=== PATIENT | female | born 1955 | race Caucasian/White ===

== ENCOUNTER 2017-06-03 18:18 | Emergency (ER) | payer MEDICAID ==
[~2017-06-03] VITALS: Ht 157.5 cm; Wt 70.3 kg
[~2017-06-03 18:18] MED LIST: "\\\"WATER PILL\\\""; ALBU8.5H5 INH; ESOM20CA PO; FURO20TA3 PO; METF500T4 PO; METH500T7 PO; SENN-18 PO
[2017-06-03] MEDS ORDERED: HYDROcodone/APAP 5/325 TABLET ONE (19:21)
[2017-06-03] MEDS ORDERED: HYDROcodone/APAP 5/325 TABLET PO ONE (19:30)
[2017-06-03 20:07] VITALS: BP 115/78
== END 2017-06-03 20:09 | disposition home or self-care (01) ==
LOC: ED 20:03
DX: S90.31XA Contusion of right foot, initial encounter (principal); M25.461 Effusion, right knee; E11.9 Type 2 diabetes mellitus without complications; J45.909 Unspecified asthma, uncomplicated; G43.909 Migraine, unspecified, not intractable, without status migrainosus; Z90.49 Acquired absence of other specified parts of digestive tract; W19.XXXA Unspecified fall, initial encounter; Y93.89 Activity, other specified; Y92.009 Unspecified place in unspecified non-institutional (private) residence as the place of occurrence of the external cause; Y99.8 Other external cause status
CPT/HCPCS: 29505

== ENCOUNTER 2017-08-16 17:18 | Emergency (ER) | payer MEDICAID ==
[~2017-08-16] VITALS: Ht 157.5 cm; Wt 72.0 kg
[~2017-08-16 17:18] MED LIST changes: +LOPE2CAP PO
[2017-08-16] MEDS ORDERED: METOCLOPRAMIDE 5 MG/ML, 2ML ONE (20:29)
[2017-08-16] MEDS ORDERED: KETOROLAC 30 MG/1 ML ONE (20:29)
[2017-08-16] MEDS ORDERED: DIPHENHYDRAMINE 50 MG/ML, 1ML ONE (20:29)
[2017-08-16] MEDS ORDERED: METOCLOPRAMIDE 5 MG/ML, 2ML IVPush ONE (20:30)
[2017-08-16] MEDS ORDERED: SODIUM CHLORIDE FLUSH 10ML SYR IVF ONE (20:30)
[2017-08-16] MEDS ORDERED: DIPHENHYDRAMINE 50 MG/ML, 1ML IVPush ONE (20:30)
[2017-08-16] MEDS ORDERED: SODIUM CHLORIDE 0.9% 1,000ML IVBOLUS ONE (20:30)
[2017-08-16] MEDS ORDERED: KETOROLAC 30 MG/1 ML IVPush ONE (20:30)
[2017-08-16 21:18] VITALS: BP 121/68
== END 2017-08-16 21:36 | disposition home or self-care (01) ==
LOC: ED 21:24
DX: G43.009 Migraine without aura, not intractable, without status migrainosus (principal); E11.9 Type 2 diabetes mellitus without complications; J45.909 Unspecified asthma, uncomplicated; K74.60 Unspecified cirrhosis of liver; Z90.49 Acquired absence of other specified parts of digestive tract
CPT/HCPCS: 96361; 96374; 96375; 99285; J1200; J1885; J2765; J7030

== ENCOUNTER 2017-08-23 11:21 | Emergency (ER) | payer MEDICAID ==
[~2017-08-23] VITALS: Ht 157.5 cm; Wt 69.9 kg
[2017-08-23] MEDS ORDERED: DEXAMETHASONE 4 MG/ML, 5ML ONE (13:47)
[2017-08-23] MEDS ORDERED: DIPHENHYDRAMINE 50 MG/ML, 1ML ONE (13:48)
[2017-08-23] MEDS ORDERED: METOCLOPRAMIDE 5 MG/ML, 2ML ONE (13:48)
[2017-08-23] MEDS ORDERED: METOCLOPRAMIDE 5 MG/ML, 2ML IVPush ONE (14:00)
[2017-08-23] MEDS ORDERED: SODIUM CHLORIDE FLUSH 10ML SYR IVF ONE (14:00)
[2017-08-23] MEDS ORDERED: DIPHENHYDRAMINE 50 MG/ML, 1ML IVPush ONE (14:00)
[2017-08-23] MEDS ORDERED: SODIUM CHLORIDE 0.9% 1,000ML IVBOLUS ONE (14:00)
[2017-08-23] MEDS ORDERED: DEXAMETHASONE 4 MG/ML, 5ML IV ONE (14:00)
[2017-08-23 14:23] VITALS: BP 130/83
== END 2017-08-23 16:07 | disposition home or self-care (01) ==
LOC: ED 13:46
DX: G43.C0 Periodic headache syndromes in child or adult, not intractable (principal); E11.9 Type 2 diabetes mellitus without complications; Z90.49 Acquired absence of other specified parts of digestive tract
CPT/HCPCS: 96361; 96374; 96375; 99284; J1200; J2765; J7030

== ENCOUNTER → 2017-09-05 | Outpatient (CLI) | payer MEDICAID | END | disposition home or self-care (01) | LOC: CFH 10:43 | PROVIDERS: ATTEND Specialist | DX: B19.20 Unspecified viral hepatitis C without hepatic coma (principal); K74.60 Unspecified cirrhosis of liver; R16.1 Splenomegaly, not elsewhere classified; N95.0 Postmenopausal bleeding; Z90.49 Acquired absence of other specified parts of digestive tract | CPT/HCPCS: 76830; 93975 ==

== ENCOUNTER 2020-07-21 13:33 | Emergency (ER) | payer MEDICARE, MEDICAID ==
[~2020-07-21] VITALS: Ht 162.6 cm; Wt 81.8 kg
[~2020-07-21 13:33] MED LIST changes: +METF500T17 PO; -METF500T4 PO
--- NOTE | 2020-07-21 13:37 | NUR ---
BIB EMS W/ C/O FEELING DIZZY, LIGHTHEADED, BACK PAIN TO R LUNG AREA. MILKD SOB. SX STARTED 1 WK AGO. SX SIMILAR A FEW YRS AGO HAD PLEURAL EFFUSION W/ THORACENTESIS. ALSO HAS C/O LIRA, LOSS OF APPETITE, DIARRHEA. 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 PT PLACED ON MONITORS. RESTING ON GURNEY. MILLI. WILL KITCHEN AT BEDSIDE FOR EVAL.
[2020-07-21] MEDS ORDERED: METHOCARBAMOL 750 MG TABLET ONE (14:21)
[2020-07-21] MEDS ORDERED: ACETAMINOPHEN 325 MG TABLET ONE (14:21)
--- NOTE | 2020-07-21 14:25 | NUR ---
BREAK RN: PT MEDICATED TO NOV. SITTING IN BED, CONNECTED TO CARDIAC, BP AND O2 MONITORS. NO ACUTE DISTRESS NOTED. PT AMBULATORY TO BATHROOM WITH ASSISTANCE AND STEADY GAIT.
[2020-07-21] MEDS ORDERED: ACETAMINOPHEN 325 MG TABLET PO ONE (14:30)
[2020-07-21] MEDS ORDERED: METHOCARBAMOL 750 MG TABLET PO ONE (14:30)
[2020-07-21 14:38] LABS: MEAN PLATELET VOLUME 8.7 fL (7.4-10.4); RED BLOOD COUNT 4.39 x10^6/uL (3.82-5.3); RED CELL DISTRIBUTION WIDTH 20.4 % (9.6-15.2)
[2020-07-21 14:47] LABS: ALANINE AMINOTRANSFERASE 18 U/L (12-78); ALBUMIN 4.4 g/dL (3.4-5.0); ANION GAP 9 mmol/L (5-15); CALCIUM 9.2 mg/dL (8.5-10.1); CHLORIDE 112 mmol/L (98-107); CREATININE 0.74 mg/dL (0.55-1.02)
[2020-07-21 14:51] LABS: ALKALINE PHOSPHATASE 58 U/L (45-117); BILIRUBIN,TOTAL 0.7 mg/dL (0.2-1.0); TOTAL PROTEIN 7.2 g/dL (6.4-8.2); TROPONIN I < 0.015 ng/mL (0.000-0.045)
[2020-07-21 15:22] LABS: MEAN CORPUSCULAR HGB CONC 29.7 g/dL (32.4-35.8); PLATELET COUNT 54 x10^3/uL (130-400)
--- NOTE | 2020-07-21 15:27 | NUR ---
PT RESTING ON GURNEY. NADN. MENDOZA.
[2020-07-21 15:28] LABS: MD YES
[2020-07-21 15:31] LABS: BAND#(MANUAL) 0.03 x10^3/uL; BANDS%(MANUAL) 1 % (0-7); LYMPH#(MANUAL) 0.44 x10^3/uL (1-3.4); LYMPHS% (MANUAL) 13 % (22-44); MONOS#(MANUAL) 0.14 x10^3/uL (0.3-2.7); MONOS% (MANUAL) 4 % (2-9); SEG#(MANUAL) 2.79 x10^3/uL (1.8-6.8); SEGS% (MANUAL) 82 % (42-75)
[2020-07-21 15:32] LABS: ANISOCYTOSIS 1+; MICROCYTOSIS 2+
[2020-07-21 15:33] LABS: <PLATELET ESTIMATE> DECREASED; <PLT MORPHOLOGY> NORMAL PLT MORPH; HYPOCHROMIA 2+; OVALOCYTES 2+; TEAR DROPS 1+
--- NOTE | 2020-07-21 16:15 | NUR ---
PT RESTING ON GURNEY. NADN. MENDOZA.
--- NOTE | 2020-07-21 17:18 | NUR ---
PT RESTING ON GURNEY. NADN. MENDOZA.
--- NOTE | 2020-07-21 18:16 | NUR ---
PT RESTING ON GURNEY. NADN. MENDOZA.
[2020-07-21 18:20] VITALS: BP 116/54
== END 2020-07-21 18:23 | disposition home or self-care (01) ==
LOC: ED 13:57
DX: M54.6 Pain in thoracic spine (principal); R07.9 Chest pain, unspecified; R94.31 Abnormal electrocardiogram [ECG] [EKG]; E11.9 Type 2 diabetes mellitus without complications; G43.909 Migraine, unspecified, not intractable, without status migrainosus; G89.29 Other chronic pain; J45.909 Unspecified asthma, uncomplicated
CPT/HCPCS: 36415; 71045; 80053; 83690; 84484; 85025; 85379; 93005; 99285

== ENCOUNTER 2020-09-13 09:07 | Emergency (ER) | payer MEDICARE, MEDICAID ==
[~2020-09-13] VITALS: Ht 157.5 cm; Wt 64.4 kg
--- NOTE | 2020-09-13 09:29 | NUR ---
ASSUMED CARE OF PATIENT. PROVIDER AT BEDSIDE PATIENT IS COMPLAINING OF A SORE ON HER LABIA X 3 DAYS. NO DRAINING BUT RED AND PAINFUL. PATIENT IS RESTING COMFORTABLY IN BED, WARM BLANKET PROVIDED. NO FAMILY AT BEDSIDE. CYCLING VITALS AND CALL LIGHT IN PLACE
[2020-09-13] MEDS ORDERED: INSULIN SINGLE DOSE, ER ONE ×2 (10:24→10:29)
[2020-09-13 10:31] LABS: ALANINE AMINOTRANSFERASE 24 U/L (12-78); ALBUMIN 3.7 g/dL (3.4-5.0); ANION GAP 5 mmol/L (5-15); CALCIUM 8.5 mg/dL (8.5-10.1); CHLORIDE 110 mmol/L (98-107)
[2020-09-13 10:33] LABS: ALKALINE PHOSPHATASE 64 U/L (45-117); BILIRUBIN,TOTAL 0.6 mg/dL (0.2-1.0); TOTAL PROTEIN 6.4 g/dL (6.4-8.2)
--- NOTE | 2020-09-13 10:38 | NUR ---
PATIENT RESTING COMFORTABLY IN BED. CALL LIGHT IN PLACE, CYCLING VITALS, NO FAMILY AT BEDSIDE.
[2020-09-13 10:40] LABS: MEAN CORPUSCULAR HEMOGLOBIN 21.5 pg (27.0-34.8); MEAN CORPUSCULAR HGB CONC 30.4 g/dL (32.4-35.8); MEAN PLATELET VOLUME 8.4 fL (7.4-10.4); RED BLOOD COUNT 3.49 x10^6/uL (3.82-5.3); RED CELL DISTRIBUTION WIDTH 20.6 % (9.6-15.2)
[2020-09-13] MEDS ORDERED: INSULIN REGULAR 100 UNITS/ML, 3ML VIAL SQ-INSULIN ONE (11:00)
[2020-09-13 11:07] LABS: MD YES; PLATELET COUNT 38 x10^3/uL (130-400)
[2020-09-13 11:12] LABS: ANISOCYTOSIS 1+; EOS#(MANUAL) 0.05 x10^3/uL (0.0-0.4); EOS% (MANUAL) 3 % (1-7); LYMPHS% (MANUAL) 13 % (22-44); MONOS#(MANUAL) 0.12 x10^3/uL (0.3-2.7); MONOS% (MANUAL) 8 % (2-9); SEG#(MANUAL) 1.14 x10^3/uL (1.8-6.8); SEGS% (MANUAL) 76 % (42-75)
[2020-09-13 11:13] LABS: HYPOCHROMIA 1+; MICROCYTOSIS 1+; OVALOCYTES 1+; TEAR DROPS 1+
[2020-09-13 11:15] LABS: <PLATELET ESTIMATE> DECREASED; <PLT MORPHOLOGY> NORMAL PLT MORPH
[2020-09-13 11:23] VITALS: BP 123/39
--- NOTE | 2020-09-13 11:23 | NUR ---
Patient/Caregiver given discharge instructions and they have confirmed that they understand the instructions. Patient ambulatory with steady gait.
[2020-09-13 11:25] LABS: ACETONE, SERUM Negative (Negative)
== END 2020-09-13 11:26 | disposition home or self-care (01) ==
LOC: ED 10:25
DX: B00.9 Herpesviral infection, unspecified (principal); E11.65 Type 2 diabetes mellitus with hyperglycemia; K73.9 Chronic hepatitis, unspecified; D72.819 Decreased white blood cell count, unspecified
CPT/HCPCS: 80053; 82010; 82800; 82962; 83036; 85025; 99283; J1815

== ENCOUNTER 2020-10-17 15:42 | Emergency (ER) | payer MEDICARE, MEDICAID ==
[~2020-10-17] VITALS: Ht 157.5 cm; Wt 70.0 kg
--- NOTE | 2020-10-17 16:00 | NUR ---
PT BIB EMS FOR DIZZYNESS AND HIGH BLOOD SUGAR. PT FELT LIKE PASSING OUT. PT TOOK [address] HAS TOLD HER TO DO THAT FOR HIGH BLOOD SUGAR. PT HAS BEEN FEELING TIRED, WEAK, AND HAVING CHILLS AND BODY ACHES. PT DENIES SOB, CP, OR ABD PAIN. PT HAS DIARRHEA AND NAUSEA, NO VOMTING.
--- NOTE | 2020-10-17 16:04 | NUR ---
EMS STARTED PIV LEFT HAND 20 GA AND 100 ML NS PROCESS COORDINATOR
[2020-10-17] MEDS ORDERED: ATOR20TA37 PO (17:22)
[2020-10-17] MEDS ORDERED: MONT10TA96 PO (17:23)
[2020-10-17] MEDS ORDERED: CETI10TA32 PO (17:23)
[2020-10-17] MEDS ORDERED: SODIUM CHLORIDE FLUSH 10ML SYR IVF ONE (17:30)
[2020-10-17] MEDS ORDERED: SODIUM CHLORIDE 0.9% 1,000ML IVBOLUS ONE (17:30)
[2020-10-17 18:14] LABS: BASOPHILS % (AUTO) 1 % (0-1); EOSINOPHILS % (AUTO) 2 % (1-7); LYMPHOCYTES % (AUTO) 15 % (22-44); MEAN CORPUSCULAR HEMOGLOBIN 22.2 pg (27.0-34.8); MEAN CORPUSCULAR HGB CONC 30.7 g/dL (32.4-35.8); MEAN PLATELET VOLUME 9.5 fL (7.4-10.4); MONOCYTES % (AUTO) 10 % (2-9); NEUTROPHILS % (AUTO) 73 % (42-75); RED BLOOD COUNT 3.43 x10^6/uL (3.82-5.3); RED CELL DISTRIBUTION WIDTH 20.8 % (9.6-15.2)
[2020-10-17 18:15] LABS: MICROSCOPIC NOT IND
[2020-10-17] MEDS ORDERED: MAGN400T9 PO (18:20)
[2020-10-17] MEDS ORDERED: LINA5TAB PO (18:21)
[2020-10-17] MEDS ORDERED: PROC10TA2 PO (18:24)
[2020-10-17 18:26] LABS: ALANINE AMINOTRANSFERASE 25 U/L (12-78); ALBUMIN 3.6 g/dL (3.4-5.0); ANION GAP 9 mmol/L (5-15); CALCIUM 8.3 mg/dL (8.5-10.1); CHLORIDE 110 mmol/L (98-107); CREATININE 0.88 mg/dL (0.55-1.02)
[2020-10-17] MEDS ORDERED: IRON15TA3 PO (18:26)
[2020-10-17 18:29] LABS: ALKALINE PHOSPHATASE 69 U/L (45-117); BILIRUBIN,TOTAL 0.5 mg/dL (0.2-1.0); TOTAL PROTEIN 6.4 g/dL (6.4-8.2)
[2020-10-17 18:52] LABS: MD MORPH REVIEW ONLY; PLATELET COUNT 43 x10^3/uL (130-400)
[2020-10-17 18:53] LABS: ANISOCYTOSIS 1+; HYPOCHROMIA 1+; MICROCYTOSIS 1+
[2020-10-17 18:54] LABS: <PLATELET ESTIMATE> DECREASED; LARGE PLATELETS 1+; OVALOCYTES 1+; POLYCHROMASIA 1+; TEAR DROPS 1+
--- NOTE | 2020-10-17 19:06 | NUR ---
patient c/o migraine 07/04. neutropenic precautions initiated. safety maintained. call mtz in reach. IVF infusing to gravity as ordered. will continue to monitor.
--- NOTE | 2020-10-17 19:10 | NUR ---
wrote to provider for some BC powder for migraine per pt request. patient continues to rest in bed. she states she takes BC powder at home for her migraines.
[2020-10-17] MEDS ORDERED: METOCLOPRAMIDE 5 MG/ML, 2ML IVPush ONE (20:00)
[2020-10-17] MEDS ORDERED: DEXAMETHASONE 4 MG/ML, 1ML IVPush ONE (20:00)
--- NOTE | 2020-10-17 20:20 | NUR ---
ambulated to bathroom with steady gait. in NAD. safety maintained
[2020-10-17] MEDS ORDERED: DEXAMETHASONE 4 MG/ML, 1ML ONE (20:26)
[2020-10-17] MEDS ORDERED: METOCLOPRAMIDE 5 MG/ML, 2ML ONE (20:27)
--- NOTE | 2020-10-17 21:43 | NUR ---
discharge instructions reviewed with patient. she had no further questions. IV removed per dc protocol. pressure dressing applied with no sign of further bleeding. she reports her dizziness has fully subsided and her migraine is getting better. in NAD. steady gait. all personal belongings with patient upon dc.
[2020-10-17 21:44] VITALS: BP 111/43
== END 2020-10-17 21:47 | disposition home or self-care (01) ==
LOC: ED 18:49
DX: G43.009 Migraine without aura, not intractable, without status migrainosus (principal); R42 Dizziness and giddiness; E11.65 Type 2 diabetes mellitus with hyperglycemia; J45.909 Unspecified asthma, uncomplicated; Z90.89 Acquired absence of other organs; Z90.49 Acquired absence of other specified parts of digestive tract; Z88.5 Allergy status to narcotic agent; Z88.6 Allergy status to analgesic agent
CPT/HCPCS: 80053; 81003; 82962; 85025; 96361; 96374; 96375; 99285; J1100; J2765; J7030

== ENCOUNTER 2020-10-29 11:18 | Emergency (ER) | payer MEDICARE, MEDICAID ==
[~2020-10-29] VITALS: Ht 157.5 cm; Wt 63.7 kg
[~2020-10-29 11:18] MED LIST changes: +ATOR20TA37 PO; +CETI10TA32 PO; +IRON15TA3 PO; +LINA5TAB PO; +MAGN400T9 PO; +METH-639 PO; -METH500T7 PO; +MONT10TA17 PO; +PROC10TA2 PO
[2020-10-29] MEDS ORDERED: DIPHENHYDRAMINE 50 MG/ML, 1ML IVPush ONE (12:00)
[2020-10-29] MEDS ORDERED: METOCLOPRAMIDE 5 MG/ML, 2ML IVPush ONE (12:00)
[2020-10-29] MEDS ORDERED: SODIUM CHLORIDE 0.9% 1,000ML IVBOLUS ONE ×2 (12:00→14:30)
[2020-10-29] MEDS ORDERED: SODIUM CHLORIDE FLUSH 10ML SYR IVF ONE (12:00)
[2020-10-29] MEDS ORDERED: METOCLOPRAMIDE 5 MG/ML, 2ML ONE (12:24)
[2020-10-29] MEDS ORDERED: DIPHENHYDRAMINE 50 MG/ML, 1ML ONE ×2 (12:24→12:32)
[2020-10-29 12:34] LABS: BASOPHILS % (AUTO) 0 % (0-1); EOSINOPHILS % (AUTO) 0 % (1-7); LYMPHOCYTES % (AUTO) 7 % (22-44); MEAN CORPUSCULAR HEMOGLOBIN 22.6 pg (27.0-34.8); MEAN PLATELET VOLUME 8.5 fL (7.4-10.4); MONOCYTES % (AUTO) 8 % (2-9); NEUTROPHILS % (AUTO) 85 % (42-75); RED BLOOD COUNT 3.68 x10^6/uL (3.82-5.3); RED CELL DISTRIBUTION WIDTH 22.4 % (9.6-15.2)
--- NOTE | 2020-10-29 12:35 | NUR ---
TASK RN: PIV STARTED, PT MEDICATED PER EMAR, IVF STARTED. PT EDUCATED ON NEED FOR URINE SAMPLE. PT RESTING ON Leikr W/ CALL LIGHT IN REACH AND SIDE RAILS UPX2. RESP EVEN AND UNLABORED, MILLI.
[2020-10-29 12:44] LABS: ALANINE AMINOTRANSFERASE 20 U/L (12-78); ALBUMIN 3.5 g/dL (3.4-5.0); ANION GAP 9 mmol/L (5-15); CALCIUM 8.5 mg/dL (8.5-10.1); CHLORIDE 109 mmol/L (98-107); CREATININE 0.87 mg/dL (0.55-1.02)
[2020-10-29 12:46] LABS: ALKALINE PHOSPHATASE 57 U/L (45-117); BILIRUBIN,TOTAL 0.6 mg/dL (0.2-1.0); TOTAL PROTEIN 6.7 g/dL (6.4-8.2)
[2020-10-29 13:00] LABS: MD MORPH REVIEW ONLY; PLATELET COUNT 36 x10^3/uL (130-400)
[2020-10-29 13:09] LABS: ANISOCYTOSIS 2+; HYPOCHROMIA 1+; MICROCYTOSIS 1+; OVALOCYTES 1+; POLYCHROMASIA 1+; TEAR DROPS 1+
[2020-10-29 13:10] LABS: <PLATELET ESTIMATE> DECREASED; <PLT MORPHOLOGY> NORMAL PLT MORPH
[2020-10-29 14:43] LABS: MICROSCOPIC NOT IND
[2020-10-29 15:55] VITALS: BP 104/30
--- NOTE | 2020-10-29 16:22 | NUR ---
Patient given discharge instructions and they have confirmed that they understand the instructions. Patient ambulatory with steady gait.
[2020-10-31] MEDS ORDERED: GABA-826 PO (15:47)
== END 2020-10-29 16:23 | disposition home or self-care (01) ==
LOC: ED 12:44
DX: G43.909 Migraine, unspecified, not intractable, without status migrainosus (principal); Z20.822 Contact with and (suspected) exposure to COVID-19; J06.9 Acute upper respiratory infection, unspecified; R94.5 Abnormal results of liver function studies; R42 Dizziness and giddiness; R19.7 Diarrhea, unspecified; R05 Cough; R00.9 Unspecified abnormalities of heart beat; E11.65 Type 2 diabetes mellitus with hyperglycemia; J45.909 Unspecified asthma, uncomplicated
CPT/HCPCS: 71045; 80053; 81003; 83690; 85025; 87635; 93005; 96361; 96374; 96375; 99285; J1200; J2765; J7030

== ENCOUNTER 2021-04-23 17:43 | Emergency (ER) | payer MEDICARE, MEDICAID ==
[~2021-04-23] VITALS: Ht 160 cm; Wt 70.0 kg
[~2021-04-23 17:43] MED LIST changes: +ACID1TAB7 PO; +CEFD300C37 PO; +GABA-826 PO; +METR500T PO
[2021-04-23 17:52] VITALS: BP 131/48
--- NOTE | 2021-04-23 17:55 | NUR ---
PT BIB EMS FOR ANXIETY. PT STATES SHE IS WITHDRAWING FROM [place]. LAST DOSES 2 WEEKS AGO. STATES HER APPETITES IS LOW, AND JUST DOESNT FEEL GREAT. FEELS DEPRESSED, DENIES SI/SA. NO CP, SOB, ABDOMINAL PAIN OR URINARY PROBLEMS. SEEN BY MD HERNANDEZ.
[2021-04-23 18:12] LABS: BASOPHILS % (AUTO) 0 % (0-1); EOSINOPHILS % (AUTO) 1 % (1-7); LYMPHOCYTES % (AUTO) 14 % (22-44); MEAN CORPUSCULAR HGB CONC 33.4 g/dL (32.4-35.8); MEAN PLATELET VOLUME 8.5 fL (7.4-10.4); MONOCYTES % (AUTO) 9 % (2-9); NEUTROPHILS % (AUTO) 76 % (42-75); PLATELET COUNT 54 x10^3/uL (130-400); RED BLOOD COUNT 4.15 x10^6/uL (3.82-5.3)
[2021-04-23 18:23] LABS: ALANINE AMINOTRANSFERASE 23 U/L (12-78); ALBUMIN 3.8 g/dL (3.4-5.0); ANION GAP 8 mmol/L (5-15); CALCIUM 9.2 mg/dL (8.5-10.1); CHLORIDE 109 mmol/L (98-107); CREATININE 0.61 mg/dL (0.55-1.02)
[2021-04-23 18:34] LABS: ALKALINE PHOSPHATASE 35 U/L (45-117); BILIRUBIN,TOTAL 0.7 mg/dL (0.2-1.0); TOTAL PROTEIN 6.8 g/dL (6.4-8.2)
--- NOTE | 2021-04-23 18:50 | NUR ---
RECEIVED REPORT, PT A&OX4, NO ACUTE DISTRESS. SITTING IN [facility]. PT TO BE D/C'D. WAITING ON PAPERWORK.
--- NOTE | 2021-04-23 19:15 | NUR ---
F/U AND D/C INSTRUCTIONS GIVEN TO PT WITH PRESCRIPTIONS AND RESOURCE PAPERWORK FOR PSYCH FACILITIES AND PT V/U.
== END 2021-04-23 19:18 | disposition home or self-care (01) ==
LOC: ED 18:30
DX: F32.9 Major depressive disorder, single episode, unspecified (principal); F11.10 Opioid abuse, uncomplicated; E11.9 Type 2 diabetes mellitus without complications; J45.909 Unspecified asthma, uncomplicated; G43.909 Migraine, unspecified, not intractable, without status migrainosus; Z90.89 Acquired absence of other organs; Z90.49 Acquired absence of other specified parts of digestive tract
CPT/HCPCS: 36415; 80053; 83735; 84443; 85025; 99283